=== PATIENT | female | born 1955 | race Caucasian/White ===

== ENCOUNTER → 2018-04-14 | Outpatient (CLI) | payer OTHER | LOC: CARD 12:23 | PROVIDERS: ATTEND Internal Medicine Cardiovascular Disease | DX: I10 Essential (primary) hypertension (principal); R60.0 Localized edema; M06.9 Rheumatoid arthritis, unspecified; E66.01 Morbid (severe) obesity due to excess calories | CPT/HCPCS: 93306 ==

== ENCOUNTER → 2018-04-23 | Day surgery (SDC) | payer OTHER ==
[~2018-04-23] VITALS: Ht 172.7 cm; Wt 126.1 kg
[2018-04-23] VITALS (7 sets, daily range): BP systolic 136–183; BP diastolic 82–116
[~2018-04-23] MED LIST: AMLO1CAP8 PO; ASPI-983 PO; ESTR0.9T PO; FOLI1TAB24 PO; LEVO75TA6 PO; LIDOCAINE 2% VISCOUS 15 ML UDC ONE; LIDOCAINE 2% VISCOUS 15 ML UDC PO ONE; LORA10TA7 PO; METH2.5T PO; METO-351 PO; MIDAZOLAM 5 MG/5 ML (VERSED) VIAL IV PRN; MIDAZOLAM 5 MG/5 ML (VERSED) VIAL ONE; NS IV 1000 ML 1,000 ML IV SCH; NS IV 1000 ML 1,000 ML ONE; OMEP20TA33 PO; VALA500T PO; fentaNYL INJECTION 100 MCG/2 ML AMP IV PRN; fentaNYL INJECTION 100 MCG/2 ML AMP ONE
--- NOTE | 2018-04-23 08:32 | Cardiac Procedure Note-CS/ASA ---
Pre-Procedure Note Pre-Op Procedure Note H&P Reviewed The H&P was reviewed, patient examined and no changes noted. Date H&P Reviewed: Apr 23, 2018 Time H&P Reviewed: 08:32 Conscious Sedation Pre-Proced Time 08:32 ASA Score 3 For ASA 3 and 4: Consider anesthesia and medical clearance. Also, for patients with a history of failed moderate sedation consider anesthesia. Airway Lungs Heart ASA score ASA 1: a normal healthy patient ASA 2: a patient with a mild systemic disease (mid diabetes, controlled hypertension, obesity x ASA 3: a patient with a severe systemic disease that limits activity (angina , COPD, prior Myocardial infarction) ASA 4: a patient with an incapacitating disease that is a constant threat to life (CHF, renal failure) ASA 5: a moribund patient not expected to survive 24 hrs. (ruptured aneurysm) ASA 6: a declared brain patient whose organs are being harvested. For emergent operations, add the letter E after the classification Mallampati Classification Grade 3 Sedation Plan Analgesia, Amnesia, Plan communicated to team members, Discussed options with patient/fam, Discussed risks with patient/fam The patient is an appropriate candidate to undergo the planned procedure, sedation, and anesthesia. The patient immediately re-assessed prior to indication. CARLOS SAINI MD Apr 23, 2018 08:32
--- NOTE | 2018-04-23 10:40 | Clinic Account Progress/Dx ---
Clinic Account Progress/Dx DIAGNOSIS: Date Seen by Provider: Apr 23, 2018 Time Seen by Provider: 10:40 Shortness of breath Aneurysmal intra-atrial septum Edema Hypertension CARLOS SAINI MD Apr 23, 2018 10:40
== END | disposition home or self-care (01) ==
LOC: CATH 08:15
PROVIDERS: ATTEND Internal Medicine Cardiovascular Disease
DX: Q21.1 Atrial septal defect (principal); R06.00 Dyspnea, unspecified; I10 Essential (primary) hypertension; I27.20 Pulmonary hypertension, unspecified; R60.0 Localized edema; E03.9 Hypothyroidism, unspecified; M06.9 Rheumatoid arthritis, unspecified; E66.01 Morbid (severe) obesity due to excess calories; Z68.41 Body mass index [BMI] 40.0-44.9, adult; Z87.891 Personal history of nicotine dependence
CPT/HCPCS: 87081; 93312; 93320; 93325

== ENCOUNTER → 2018-05-10 | Outpatient (CLI) | payer OTHER ==
[~2018-05-10] MED LIST changes: -LIDOCAINE 2% VISCOUS 15 ML UDC ONE; -LIDOCAINE 2% VISCOUS 15 ML UDC PO ONE; -MIDAZOLAM 5 MG/5 ML (VERSED) VIAL IV PRN; -MIDAZOLAM 5 MG/5 ML (VERSED) VIAL ONE; -NS IV 1000 ML 1,000 ML IV SCH; -NS IV 1000 ML 1,000 ML ONE; -fentaNYL INJECTION 100 MCG/2 ML AMP IV PRN; -fentaNYL INJECTION 100 MCG/2 ML AMP ONE
== END ==
LOC: RAD 07:42
PROVIDERS: ATTEND Nurse Practitioner Family
DX: Z12.31 Encounter for screening mammogram for malignant neoplasm of breast (principal)
CPT/HCPCS: 77067

== ENCOUNTER → 2019-05-23 | Outpatient (CLI) | payer MEDICARE ==
[~2019-05-23] MED LIST changes: +AMLO-77 PO; -AMLO1CAP8 PO
--- NOTE | 2019-05-23 10:20 | Diagnostic Imaging Report ---
INDICATION: Routine screening. Comparison is made with prior mammogram from 05/10/2018 and 01/05/2017. 2-D and 3-D bilateral screening mammography was performed with CAD. Both breasts are heterogeneously dense, limiting the sensitivity of mammography. There are scattered benign calcifications. No dominant mass or malignant-appearing microcalcifications are seen. Axillae are unremarkable. IMPRESSION: BI-RADS Category 2 No mammographic features suspicious for malignancy are identified. ACR BI-RADS Category 2: Benign findings. Result letter will be mailed to the patient. Note: At least 10% of breast cancer is not imaged by mammography. Dictated by: Dictated on workstation # [id number]
== END ==
LOC: RAD 07:44
PROVIDERS: ATTEND Nurse Practitioner Family
DX: Z12.31 Encounter for screening mammogram for malignant neoplasm of breast (principal)
CPT/HCPCS: 77067

== ENCOUNTER → 2019-05-24 | Outpatient (CLI) | payer MEDICARE ==
--- NOTE | 2019-05-24 11:02 | Diagnostic Imaging Report ---
EXAMINATION: Skull at 10:38 AM. INDICATION: Asymmetry. TECHNIQUE/COMPARISON: PA, Alpa, and both lateral views of the skull were obtained. There are no prior studies available for comparison. FINDINGS: There is no linear or depressed skull fracture. There does not appear to be any significant asymmetry of the skull. The sella is not enlarged and there are no pathological intracranial calcifications evident. IMPRESSION: 1. There is no evidence for an acute bony abnormality of the skull. There does not appear to be any significant bony asymmetry either. 2. If further evaluation is desired, then CT of the head would be recommended. Dictated by: Dictated on workstation # [id number]
== END ==
LOC: RAD 10:10
PROVIDERS: ATTEND Nurse Practitioner Family
DX: Q75.8 Other specified congenital malformations of skull and face bones (principal)
CPT/HCPCS: 70250

== ENCOUNTER → 2019-06-02 | Outpatient (CLI) | payer MEDICARE | LOC: CARD 10:33 | PROVIDERS: ATTEND Internal Medicine Cardiovascular Disease | DX: I10 Essential (primary) hypertension (principal); R60.9 Edema, unspecified; M06.9 Rheumatoid arthritis, unspecified; E66.01 Morbid (severe) obesity due to excess calories | CPT/HCPCS: 93306 ==

== ENCOUNTER 2020-04-25 15:16 | Inpatient (IN) | payer MEDICARE ==
[~2020-04-25] VITALS: Ht 170.2 cm; Wt 129.0 kg
[~2020-04-25 15:16] MED LIST changes: +ASPI-1238 PO; -ASPI-983 PO; -VALA500T PO; +VALA500T7 PO
[2020-04-25] MEDS ORDERED: ACETAMINOPHEN 325 MG TABLET PO ONE (15:30)
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
[2020-04-25] MEDS ORDERED: LACTATED RINGERS 1,000 ML IV ONE (15:45)
[2020-04-25] MEDS ORDERED: ETAN25VI SQ (15:54)
--- NOTE | 2020-04-25 16:19 | Diagnostic Imaging Report ---
INDICATION: Left shoulder pain. Injury. COMPARISON: Shoulder radiographs from the same day. FINDINGS: Two radiographic views of the left clavicle were obtained and show old nonacute nonhealed fractures of the distal clavicle. There is moderate inferior subluxation of the distal fracture fragment by approximately 2 cm. Note, however, is also made of a heavily comminuted acute fracture of the humeral head. This is only partially visualized on the uxzck-eg-qveo for this exam. The humeral head also appears mildly inferiorly subluxed in respect to the glenoid. A fat fluid level is noted, consistent with lipohemarthrosis. No unexpected radiopaque foreign bodies are seen. The included portions of the left hemithorax are clear. IMPRESSION: 1. Old nonacute nonhealed fracture of the distal left clavicle. 2. Heavily comminuted acute fracture of the left humeral head. Dictated by: Dictated on workstation # [id number]
--- NOTE | 2020-04-25 16:21 | Diagnostic Imaging Report ---
INDICATION: Fall. Shoulder pain. COMPARISON: Clavicle views from the same day. FINDINGS: Three radiographic views of the left shoulder were obtained and demonstrate an acute heavily comminuted fracture of the left humeral head. There is also moderate impaction and displacement of the fracture fragments. Additionally, the humerus does appear mildly abnormally inferiorly subluxed in respect to the glenoid. A fat fluid level is noted, consistent with hemarthrosis. No convincing scapular deformity is seen. There is, however, a nonacute nonhealed displaced fracture of the distal left clavicle. The included portions of the left hemithorax are clear. No unexpected radiopaque foreign bodies are seen. IMPRESSION: Acute heavily comminuted fracture of the left humeral head with moderate displacement of the fracture fragments and inferior subluxation of the humeral head in respect to the glenoid. Dictated by: Dictated on workstation # [id number]
[2020-04-25 16:34] LABS: BASOPHILS % (AUTO) 0 % (0-10); EOSINOPHILS # (AUTO) 0.3 10^3/uL (0.0-0.3); EOSINOPHILS % (AUTO) 3 % (0-10); HEMATOCRIT 39 % (35-52); HEMOGLOBIN 12.9 g/dL (11.5-16.0); LYMPHOCYTES # (AUTO) 1.8 10^3/uL (1.0-4.0); LYMPHOCYTES % (AUTO) 22 % (12-44); MEAN CORPUSCULAR HEMOGLOBIN 32 pg (25-34); MEAN CORPUSCULAR HGB CONC 33 g/dL (32-36); MEAN CORPUSCULAR VOLUME 97 fL (80-99); MEAN PLATELET VOLUME 12.3 fL (9.0-12.2); MONOCYTES # (AUTO) 0.6 10^3/uL (0.0-1.0); MONOCYTES % (AUTO) 8 % (0-12); NEUTROPHILS # (AUTO) 5.4 10^3/uL (1.8-7.8); NEUTROPHILS % (AUTO) 66 % (42-75); PLATELET COUNT 200 10^3/uL (130-400); WHITE BLOOD COUNT 8.1 10^3/uL (4.3-11.0)
[2020-04-25 16:38] LABS: ALBUMIN 3.8 GM/DL (3.2-4.5)
[2020-04-25 16:39] LABS: CHLORIDE 99 MMOL/L (98-107); POTASSIUM 3.5 MMOL/L (3.6-5.0); SODIUM 135 MMOL/L (135-145)
[2020-04-25 16:40] LABS: CALCIUM 9.1 MG/DL (8.5-10.1)
[2020-04-25 16:41] LABS: GLUCOSE 133 MG/DL (70-105)
[2020-04-25 16:42] LABS: CARBON DIOXIDE 25 MMOL/L (21-32)
[2020-04-25 16:43] LABS: BILIRUBIN,TOTAL 0.7 MG/DL (0.1-1.0)
[2020-04-25 16:44] LABS: ALKALINE PHOSPHATASE 71 U/L (40-136)
[2020-04-25 16:45] LABS: GFR ESTIMATED > 60
[2020-04-25 16:46] LABS: BUN/CREATININE RATIO 23
[2020-04-25 16:48] LABS: ALANINE AMINOTRANSFERASE 17 U/L (0-55)
--- NOTE | 2020-04-25 17:04 | Diagnostic Imaging Report ---
EXAM: Left humerus radiograph. EXAM DATE: 04/25/2020. COMPARISON: Left shoulder radiograph 04/25/2020. HISTORY: Fall and left shoulder with pain. TECHNIQUE: Two views of the left humerus. FINDINGS: Redemonstrated comminuted fracture and dislocation of the humeral head as seen on same-day left shoulder radiograph. No other acute fracture is seen within the mid or distal humerus, although evaluation is limited secondary to soft tissue attenuation. IMPRESSION: Comminuted fracture and dislocation of the left humeral head. Dictated by: Dictated on workstation # [id number]
[2020-04-25 18:04] LABS: BILIRUBIN,URINE NEGATIVE (NEGATIVE); CLARITY,URINE CLEAR; COLOR,URINE YELLOW; GLUCOSE, URINE (UA) NEGATIVE (NEGATIVE); KETONES,URINE NEGATIVE (NEGATIVE); LEUKOCYTE ESTERASE ,URINE NEGATIVE (NEGATIVE); NITRITE,URINE NEGATIVE (NEGATIVE); PROTEIN,URINE NEGATIVE (NEGATIVE)
[2020-04-25 18:10] LABS: AMORPHOUS SEDIMENT,UR FEW AMOR URATES /LPF; BACTERIA,URINE FEW /HPF; WBC,URINE 0-2 /HPF
[2020-04-25] MEDS ORDERED: ACETAMINOPHEN 500 MG TAB (TYLENOL) ONE (18:48)
--- NOTE | 2020-04-25 20:05 | NUR ---
MARLO ROJAS admitted to room 415-1, with an admitting diagnosis of FALL. R HUMERAL FRACTURE, PAIN CONTROL , on 04/25/20 from [place] via [facility], accompanied by STAFF.MARLO ROJAS introduced to surroundings, call light, bed controls, phone, TV, temperature control, lights, meal times, smoking policy, visitor policy, side rail policy, bathrooms and showers. Patient Rights given to patient in the handbook. MARLO ROJAS verbalizes understanding that [facility] is not responsible for the loss or damage to any personal effects or valuables that are kept in the patients posession during their hospitalization. MARLO ROJAS verbalizes understanding of Interdisciplinary Patient Education. Patient and/or family were informed about the Rapid Response Team and its purpose.
[2020-04-25 20:16] VITALS: BP 137/66
[2020-04-25] MEDS ORDERED: morphine INJ 10 MG/ML 1ML (SYR OR VIAL) IV PRN (20:30)
--- NOTE | 2020-04-25 21:10 | NUR ---
PT REQUEST HER HOME MEDS, DR SWEET NOTIFIED OF MEDS STATED BY PT, ORDERED TO GIVE ONE TIME DOSE AMLODIPINE AND RESTART LEVOTHYROXINE. SEE ORDER HX
[2020-04-25] MEDS ORDERED: amLODIPine 5 MG (NORVASC) TAB PO ONE (21:15)
[2020-04-25] MEDS: morphine INJ 4 MG/ML 1 ML (VIAL/SYRINGE) IV PRN (21:26)
[2020-04-25] MEDS: LACTATED RINGERS 1,000 ML IV SCH (22:31)
[2020-04-26 00:32] VITALS: BP 144/80
[2020-04-26] MEDS: morphine INJ 4 MG/ML 1 ML (VIAL/SYRINGE) IV PRN ×5 (01:07→20:39)
[2020-04-26 04:32] VITALS: BP 151/86
[2020-04-26] MEDS: LEVOTHYROXINE 75 MCG (LEVOTHROID) TABLET PO SCH (05:37)
[2020-04-26 05:51] LABS: BASOPHILS % (AUTO) 0 % (0-10); EOSINOPHILS # (AUTO) 0.1 10^3/uL (0.0-0.3); EOSINOPHILS % (AUTO) 1 % (0-10); HEMATOCRIT 36 % (35-52); HEMOGLOBIN 11.8 g/dL (11.5-16.0); LYMPHOCYTES # (AUTO) 1.2 10^3/uL (1.0-4.0); LYMPHOCYTES % (AUTO) 14 % (12-44); MEAN CORPUSCULAR HEMOGLOBIN 32 pg (25-34); MEAN CORPUSCULAR HGB CONC 33 g/dL (32-36); MEAN CORPUSCULAR VOLUME 97 fL (80-99); MEAN PLATELET VOLUME 12.4 fL (9.0-12.2); MONOCYTES # (AUTO) 1.1 10^3/uL (0.0-1.0); MONOCYTES % (AUTO) 12 % (0-12); NEUTROPHILS # (AUTO) 6.6 10^3/uL (1.8-7.8); NEUTROPHILS % (AUTO) 73 % (42-75); PLATELET COUNT 179 10^3/uL (130-400)
[2020-04-26 06:24] LABS: ALANINE AMINOTRANSFERASE 15 U/L (0-55); ALBUMIN 3.6 GM/DL (3.2-4.5); ALKALINE PHOSPHATASE 60 U/L (40-136); BILIRUBIN,TOTAL 0.9 MG/DL (0.1-1.0); BUN/CREATININE RATIO 23; CALCIUM 8.7 MG/DL (8.5-10.1); CARBON DIOXIDE 25 MMOL/L (21-32); CHLORIDE 102 MMOL/L (98-107); CREATININE SERUM 0.71 MG/DL (0.60-1.30); GFR ESTIMATED > 60; GLUCOSE 111 MG/DL (70-105); POTASSIUM 3.8 MMOL/L (3.6-5.0); SODIUM 137 MMOL/L (135-145); TOTAL PROTEIN 6.6 GM/DL (6.4-8.2)
[2020-04-26 07:20] VITALS: BP 172/82
--- NOTE | 2020-04-26 08:44 | NUR ---
CM/SS: Answered patient's call light and she requested to use the bathroom. She reported that she is in a great deal of pain. I let her primary care nurse know that she is in pain. Explored if she felt like she could get up to use the bathroom et she reports that she can. I asked the patient if she is assist of 1 person help and if she is using a walker. She reports "I need a lot of help and no one has offered me a walker." I asked if she had been out of bed prior to my helping her and she reports that she has. I encouraged her that if they had already worked with her the staff have determined she is safe to get up with assist x1 and no walker. I confirmed that she felt safe with getting up with me and no walker and she agrees. She is very specific on what she wants you to do to as the helper, where she wants you to stand, how she holds on to you d/t fear of hurting her shoulder. When she performed bed mobility she was able to do that independently after I set up the bed rail on the right side of the bed so she can pull herself up and use it to help turn herself to to the edge of the bed. She is able to perform sit to stand with minimal assist x1. Her gait is slow, steady, and she does not appear to need an assistive device for ambulation. She did need assist x1 to help pull down her underwear for toileting. She was able to perform pericare independently. Sit to stand from toilet independent using the grab bar. While with her we talked about what services she might be able to receive. She mentioned [facility] and asked if they would stay with her for a couple of days. Explained that [facility] service does not stay with clients but that they would come out and see her and provide doctor ordered services. She reported that she wants someone to stay with her. Offered her the paid lawn care professional list so that she can reach out to someone that might stay with her. She voiced that is what she is looking for and so I brought that to her. We also talked about private pay at a alf home and renting a lift chair. She does not want to rent a reclining lift chair but was also interested in considering a nursing facility for the option of 24/7 care. She thinks that she will be discharged today and voiced that she would really prefer that Dr. Hylton come and see her here at the hospital and perform any needed surgery before she is dismissed. Encouraged her that sometimes surgical procedures are performed on a outpt basis but that I would ask her nurse what her continued care plans are and offer support to Rufina no matter what her care plan is. She voiced appreciation for the paid lawn care professional list. I let her know that I will f/u later this morning. No further needs at this time.
[2020-04-26] MEDS: LACTATED RINGERS 1,000 ML IV SCH ×2 (08:47→11:57)
[2020-04-26] MEDS: ONDANSETRON 4 MG/2 ML (SDV) Z0FRAN IV PRN ×2 (10:14→14:44)
[2020-04-26] MEDS ORDERED: CALC117719 PO (10:32)
[2020-04-26] MEDS ORDERED: MULT-1136 PO (10:32)
[2020-04-26] MEDS ORDERED: KRIL1CAP18 PO (10:32)
[2020-04-26] MEDS ORDERED: VITA200C18 PO (10:32)
[2020-04-26] MEDS ORDERED: MTP25TSR PO (10:32)
[2020-04-26] MEDS ORDERED: POTA2TAB5 PO (10:32)
[2020-04-26] MEDS ORDERED: CHOL200014 PO (10:32)
[2020-04-26] MEDS ORDERED: TURM500C4 PO (10:32)
[2020-04-26] MEDS ORDERED: HYDR25TA4 PO (10:32)
[2020-04-26] MEDS ORDERED: AMLO1CAP5 PO (10:32)
[2020-04-26] MEDS ORDERED: ETAN50PE SQ (10:39)
[2020-04-26] MEDS ORDERED: PROGESTERONE TROCHE PO (10:49)
[2020-04-26] MEDS ORDERED: TESTOSTERONE PO (10:49)
[2020-04-26] MEDS ORDERED: PROGESTERONE PO (10:49)
[2020-04-26] MEDS ORDERED: BIEST PO (10:49)
--- NOTE | 2020-04-26 11:00 | NUR ---
CM/SS F/U: Offered additional choice forms for home health care entities and senior care facilities. Patient voiced that she is not interested in senior care facilities d/t COVID. She has been calling some paid caregivers to check on what might be available to her. She voiced that she would like to also have [facility] and voiced that she will need a hospital bed vs. lift chair. Patient choice is for [facility]. Notified [facility] of the potential referral. Patient requested that I call and find out equipment rental prices. This was explored and found that [employer] in [place], [place] is the only known medical equipment store to carry mechanical lift chairs and [facility] carries hospital beds. These prices were obtained and given to the patient. She indicates that she will get a hold of [facility] for a hospital bed and does not want the lift chair. She voiced appreciation for all of the resources provided to her and asked additional questions as to why Dr. Hylton was not consulted to come to the hospital to see her. Patient is currently in Observation status here and it was explained to her that often this type of injury is followed up on an outpatient basis. I did express that when her primary care doctor rounds she can visit with her about continued care plan options and that we are just covering our bases for whatever her doctor will want for her continued care plans. She voiced appreciation for this information and denies any further needs or requests at this time.
[2020-04-26 12:40] VITALS: BP 164/94
[2020-04-26] MEDS ORDERED: PATIENT MAY USE OWN MEDS, ALL MC SCH (13:15)
--- NOTE | 2020-04-26 13:49 | NUR ---
SPOKE WITH THE PT, WENT THRU THE EXT MED HISTORY AND CALLED [facility] TO COMPLETE THE MED REC PT WAS ABLE TO NAME ALL HER MEDICATIONS WELL WHEN/HOW SHE TAKES EACH PT GETS ENBREL 50 SURECLICK THRU THE [employer] MAILORDER [employer]. IT WAS LAST MAILED OUT ON 02-23-2020 FOR A 3 MONTH SUPPLY THE PT GETS THE FOLLOWING COMPOUNDED MEDICATIONS FROM [facility]: 02-29-2020 PROGESTERONE 200MG CARRINGTON 02-29-2020 BIEST 50/50 CARRINGTON 03-15-2020 TESTOSTERONE 1MG CARRINGTON OTC MEDS: PRILOSEC TUMS ULTRA POTASSIUM VIT D MTV TURMERIC KRILL OIL VIT E ASPIRIN 81MG
[2020-04-26 15:59] VITALS: BP 154/81
--- NOTE | 2020-04-26 16:48 | NUR ---
CM DISCHARGE PLANNING: Dr. Rabago the orthopedic surgeon is planning on surgically repairing Rufina's left arm on Thursday with the patient being a to follow. The office nurse will call me on Thursday to give a time that they will need to have the patient at their facility to check in for surgery. Dr. Figueroa is keeping the patient here for continue needed pain control et support with ADL's d/t inability to perform independently. The patient's sister Oxana will transport her to [place] on Thursday and her cell phone number is [phone]. Rufina will need to be NPO at Midnight on Thursday for the known surgery on Thursday. Assisted patient with setting up a hospital bed at home. [employer] will deliver the hospital bed to her home this evening and her sister Oxana will be there to receive. Rufina voiced relief that her surgery will be done sooner than later and voiced appreciation in the care she has received here.
--- NOTE | 2020-04-26 17:53 | History & Physical ---
History of Present Illness History of Present Illness Reason for visit/HPI This is a 65 year old female with a history of rheumatoid arthritis as well as a nonunion left clavicle fracture who slipped on a wet deck and fell on her right arm. She was brought to the emergency room and found to have an acute heavily comminuted fracture of the left humeral head with subluxation of the humeral head. She has numerous drug allergies making pain control difficult and lives alone so there was concern of her being able to care for herself at home with her left arm immobilized and possible side effects from pain medications so she will be admitted for pain control and ortho consult. Date of Admission Apr 25, 2020 at 19:00 Date Seen by a Provider: Apr 26, 2020 Time Seen by a Provider: 12:35 I consulted on this patient on 04/26/20 17:47 Attending Physician Milli Figueroa DO Admitting Physician Milli Figueroa DO Consult JUSTIN BENAVIDEZ Allergies and Home Medications Allergies Coded Allergies: chlorthalidone (Verified Allergy, Severe, 04/23/18) CHANGED ABILITY TO WALK Penicillins (Verified Allergy, Mild, RASH, 04/23/18) Sulfa (Sulfonamide Antibiotics) (Verified Allergy, Mild, RASH, 04/23/18) acetaminophen (Verified Allergy, Mild, NAUSEA, 04/23/18) "CRAZY" aspirin (Verified Allergy, Mild, RASH, 04/23/18) bacitracin (Verified Allergy, Mild, RASH, 04/23/18) cefaclor (Verified Allergy, Mild, RASH, 04/23/18) clindamycin (Verified Allergy, Mild, RASH, 04/23/18) codeine (Verified Allergy, Mild, 04/23/18) "CRAZY" ibuprofen (Verified Allergy, Mild, NAUSEA, 04/23/18) lanolin (Verified Allergy, Mild, RASH, 04/23/18) latex (Verified Allergy, Mild, RASH, 04/23/18) neomycin (Verified Allergy, Mild, RASH, 04/23/18) oxycodone (Verified Allergy, Mild, RASH, 04/23/18) polymyxin B (Verified Allergy, Mild, RASH, 04/23/18) tramadol (Verified Allergy, Mild, 04/23/18) "CRAZY" iodine (Verified Allergy, Unknown, 04/25/20) Home Medications Amlodipine Besylate/Benazepril 1 Each Capsule, 1 EACH PO DAILY, (Reported) Aspirin 81 Mg Tablet.dr, 81 MG PO DAILY, (Reported) Calcium Carbonate 470 Mg Tab.chew, 940 MG PO DAILY, (Reported) TAKES 2 (470MG) TABS Cholecalciferol (Vitamin D3) 50 Mcg Tablet, 50 MCG PO DAILY, (Reported) Etanercept 50 Mg/1 Ml Pen.injctr, 50 MG SQ MON, (Reported) Folic Acid 1 Mg Tablet, 1 MG PO DAILY, (Reported) Hydrochlorothiazide 25 Mg Tablet, 25 MG PO DAILY, (Reported) Krill/Om-3/Dha/Epa/Phospho/Ast 1 Each Capsule, 1 EACH PO DAILY, (Reported) Levothyroxine Sodium 75 Mcg Tablet, 75 MCG PO DAILY, (Reported) Methotrexate Sodium 2.5 Mg Tablet, 17.5 MG PO FRI, (Reported) TAKE 7 TABLETS ONCE A WEEK Metoprolol Succinate 25 Mg Tab.er.24h, 25 MG PO DAILY, (Reported) Multivitamin 1 Each Tablet, 1 EACH PO DAILY, (Reported) Omeprazole Magnesium 20 Mg Tablet.dr, 20 MG PO DAILY, (Reported) Potassium Gluconate 90 Mg Tablet, 90 MG PO DAILY, (Reported) Turmeric/Turmeric Root Extract 1 Each Capsule, 1 EACH PO DAILY, (Reported) Valacyclovir HCl 500 Mg Tablet, 500 MG PO DAILY, (Reported) Vitamin E Acetate 200 Unit Capsule, 200 UNIT PO DAILY, (Reported) [Biest(50/50)] 50,/50 CARRINGTON, 0.5 EACH PO HS, (Reported) [Progesterone Carrington] 200 CARRINGTON, 0.5 EA PO HS, (Reported) [Testosterone ] 1 TROC, 0.5 EA PO Q48H, (Reported) Patient Home Medication List Home Medication List Reviewed: Yes Past Qosgfyt-Qnsmjl-Ohmliv Hx Past Med/Social Hx: Reviewed Nursing Past Med/Soc Hx Patient Social History Alcohol Use: Denies Use Recreational Drug Use: No Smoking Status: Never a Smoker Recent Foreign Travel: No Contact w/other who traveled: No Recent Hopitalizations: No Recent Infectious Disease Expo: No Past Medical History Surgeries: Abdominal, Appendectomy, Hysterectomy, Orthopedic Currently Using CPAP: No Currently Using BIPAP: No Cardiac: Hypertension Sexually Transmitted Disease: Yes (GENITAL HERPES) Gastrointestinal: Hiatal Hernia Musculoskeletal: Rheumatoid Arthritis Endocrine: Hypothyroidsim Did You Recieve Any Treatments: Yes What Type of Treatment Did You: Surgical Intervention History of Blood Disorders: Yes ("CLOTTING FACTOR" ISSUE) Adverse Reaction to Blood Hernandez: No Review of Systems Constitutional: No no symptoms reported, No see HPI, No chills, No diaphoresis, No dizziness, No fever, No malaise, No weakness, No weight gain, No weight loss, No other EENTM: No see HPI, No no symptoms reported, No ear discharge, No hearing loss, No ear pain, No blurred vision, No double vision, No eye pain, No tearing, No vision loss, No dental problems, No hoarseness, No mouth pain, No mouth swelling, No epistaxis, No nose congestion, No nose pain, No throat pain, No throat swelling, No other Respiratory: No no symptoms reported, No see HPI, No cough, No dyspnea on exertion, No hemoptysis, No orthopnea, No phlegm, No short of breath, No stridor, No wheezing, No other Cardiovascular: No no symptoms reported, No see HPI, No chest pain, No edema, No Hx of Intervention, No palpitations, No syncope, No vascular heart diseas, No other Gastrointestinal: nausea Genitourinary: No no symptoms reported, No see HPI, No decreased output, No discharge, No dysuria, No frequency, No hematuria, No hesitancy, No incontinence, No nocturia, No pain, No other Musculoskeletal: joint pain, joint swelling Skin: No no symptoms reported, No see HPI, No change in color, No change in hair/nails, No dryness, No hx of skin cancer, No lesions, No lumps, No pruritus, No rash, No other Psychiatric/Neurological: Denies No Symptoms Reported, Denies See HPI, Denies Anxiety, Denies Depressed, Denies Emotional Problems, Denies Headache, Denies Numbness, Denies Paresthesia, Denies Pre-Existing Deficit, Denies Seizure, Denies Tingling, Denies Tremors, Denies Weakness, Denies Other Physical Exam Vital Signs Vital Signs - First Documented 04/25/20 04/25/20 15:30 19:55 Temp 36.8 Pulse 71 Resp 20 B/P (MAP) 146/76 (99) Pulse Ox 96 O2 Delivery Room Air Capillary Refill : Less Than 3 SecondsLess Than 3 Seconds Height, Weight, BMI Height: 5'8.00" Weight: 278lbs. 0.0oz. 126.639193cf; 44.53 BMI Method: General Appearance: No Apparent Distress HEENT: Normal ENT Inspection Neck: Supple Respiratory: Lungs Clear Cardiovascular: Regular Rate, Rhythm Gastrointestinal: Normal Bowel Sounds, Non Tender, Soft Rectal: Deferred Back: No CVA Tenderness Extremity: Non Tender, No Calf Tenderness, No Pedal Edema, Other (left arm in sling) Neurologic/Psychiatric: Alert, Oriented x3 Skin: Warm/Dry Comments Laboratory Tests 04/25/20 17:55: Urine Color YELLOW, Urine Clarity CLEAR, Urine pH 6.0, Urine Specific Branscomb 1.025H, Urine Protein NEGATIVE, Urine Glucose (UA) NEGATIVE, Urine Ketones NEGATIVE, Urine Nitrite NEGATIVE, Urine Bilirubin NEGATIVE, Urine Urobilinogen 0.2, Urine Leukocyte Esterase NEGATIVE, Urine RBC (Auto) NEGATIVE, Urine RBC NONE, Urine WBC 0-2, Urine Squamous Epithelial Cells 5-10, Urine Crystals PRE SENTH, Urine Amorphous Sediment FEW SARAH URATESH, Urine Bacteria FEWH, Urine Casts NONE, Urine Mucus MODERATEH, Urine Culture Indicated NO 04/26/20 05:10: White Blood Count 9.0, Red Blood Count 3.68L, Hemoglobin 11.8, Hematocrit 36, Mean Corpuscular Volume 97, Mean Corpuscular Hemoglobin 32, Mean Corpuscular Hemoglobin Concent 33, Red Cell Distribution Width 13.8, Platelet Count 179, Mean Platelet Volume 12.4H, Immature Granulocyte % (Auto) 0, Neutrophils (%) (Auto) 73, Lymphocytes (%) (Auto) 14, Monocytes (%) (Auto) 12, Eosinophils (%) (Auto) 1, Basophils (%) (Auto) 0, Neutrophils # (Auto) 6.6, Lymphocytes # (Auto) 1.2, Monocytes # (Auto) 1.1H, Eosinophils # (Auto) 0.1, Basophils # (Auto) 0.0, Immature Granulocyte # (Auto) 0.0, Sodium Level 137, Potassium Level 3.8, Chloride Level 102, Carbon Dioxide Level 25, Anion Gap 10, Blood Urea Nitrogen 16, Creatinine 0.71, Estimat Glomerular Filtration Rate > 60, BUN/Creatinine Ratio 23, Glucose Level 111H, Calcium Level 8.7, Corrected Calcium 9.0, Total Bilirubin 0.9, Aspartate Amino Transf (AST/SGOT) 18, Alanine Aminotransferase (ALT/SGPT) 15, Alkaline Phosphatase 60, Total Protein 6.6, Albumin 3.6 Assessment/Plan Assessment and Plan 1. Acute heavily comminuted fracture of the left humeral head with subluxation--immobilized with pain control with IV morphine due to numerous drug allergies, Dr. Rabago at [facility] has been consulted and patient is scheduled for surgery on Thursday, April 30, 2020, patient is a high fall risk for returning to home due to immobilized left arm, lives alone, numerous drug allergies limit pain control and oral morphine could result in altered sensorium causing increased fall risk 2. Hypertension--home meds restarted 3. Rheumatoid arthritis--on methotrexate and enbrel, follows routinely with rheumatology Admission Diagnosis Admission Status: Observation Clinical Quality Measures DVT/VTE Risk/Contraindication: Risk Factor Score Per Nursin RFS Level Per Nursing on Admit: 4+=Very High MILLI FIGUEROA DO Apr 26, 2020 17:52
[2020-04-26] MEDS: ENOXAPARIN 40 MG/0.4 ML (LOVENOX) SYR SC SCH (18:06)
[2020-04-26 20:25] VITALS: BP 167/91
[2020-04-26] MEDS: PROGESTERONE 200 MG PO SCH (20:27)
[2020-04-26] MEDS: SENNA W/DOCUSATE (SENOKOT S) TABLET PO SCH (20:28)
[2020-04-26] MEDS: BIEST PO SCH (20:28)
[2020-04-27] VITALS: BP 168/93
[2020-04-27] MEDS: morphine INJ 4 MG/ML 1 ML (VIAL/SYRINGE) IV PRN ×5 (00:44→20:54)
[2020-04-27] MEDS: LACTATED RINGERS 1,000 ML IV SCH ×2 (01:50→21:54)
[2020-04-27] MEDS: LEVOTHYROXINE 75 MCG (LEVOTHROID) TABLET PO SCH ×2 (05:16→05:17)
[2020-04-27] MEDS: ENOXAPARIN 40 MG/0.4 ML (LOVENOX) SYR SC SCH ×2 (05:16→18:49)
[2020-04-27] MEDS: MULTIVIT W/MINERALS TAB (THERAGRAN M) PO SCH (07:37)
[2020-04-27 08:00] VITALS: BP 187/97
[2020-04-27] MEDS: FOLIC ACID 1 MG TAB PO SCH (08:35)
[2020-04-27] MEDS: CALCIUM CARBONATE 500 MG (TUMS) TAB.CHEW PO SCH (08:44)
[2020-04-27] MEDS: HYDROCHLOROTHIAZIDE 25 MG (HCTZ) TAB PO SCH (08:44)
[2020-04-27] MEDS: lisINopril 20 MG (PRINIVIL) TABLET PO SCH (08:44)
[2020-04-27] MEDS: SENNA W/DOCUSATE (SENOKOT S) TABLET PO SCH ×2 (08:44→21:06)
[2020-04-27] MEDS: VITAMIN D3 25 MCG (1,000 UNITS) TABLET PO SCH (08:44)
[2020-04-27] MEDS: amLODIPine 5 MG (NORVASC) TAB PO SCH (08:45)
[2020-04-27] MEDS: VALACYCLOVIR 500 MG TAB (VALTREX) PO SCH (08:45)
[2020-04-27] MEDS: PANTOPRAZOLE 20 MG TABLET (PROTONIX) PO SCH (08:46)
[2020-04-27] MEDS: TESTOSTERONE 1 MG PO SCH (08:48)
--- NOTE | 2020-04-27 09:20 | NUR ---
MS 2MG IV FOR PAIN LT ARM.
--- NOTE | 2020-04-27 09:30 | Progress Note ---
Subjective HPI/CC On Admission Date Seen by Provider: Apr 27, 2020 Time Seen by Provider: 09:25 Ms. Preciado is a 65 year old with history of non-union left clavicle fracture who presents to the ED after falling found to have Acute heavily comminuted fracture of the left humeral head with moderate displacement of the fracture fragments and inferior subluxation of the humeral head in respect to the glenoid. She has multiple medication allergies and can only tolerate morphine for pain. She was unable to go home due to care needs and is awaiting surgery in [place] on Thursday. Subjective/Events-last exam Today, she is feeling like pain is well-controlled on morphine. Having some nausea with higher doses of medications. Objective Exam Vital Signs Vital Signs Date Time Temp Pulse Resp B/P (MAP) Pulse Ox O2 Delivery O2 Flow Rate FiO2 04/27/20 08:00 36.5 87 18 187/97 (127) Room Air 04/27/20 08:00 96 Capillary Refill : Less Than 3 SecondsLess Than 3 Seconds General Appearance: No Apparent Distress, WD/WN Respiratory: Chest Non Tender, Lungs Clear, Normal Breath Sounds Cardiovascular: Regular Rate, Rhythm, No Edema Extremity: No Pedal Edema (ice on left shoulder in sling) Results/Procedures Lab Patient resulted labs reviewed. Assessment/Plan Assessment and Plan Assess & Plan/Chief Complaint 1. Acute heavily comminuted fracture of the left humeral head with subluxation--immobilized with pain control with IV morphine due to numerous drug allergies, Dr. Rabago at [place] has been consulted and patient is scheduled for surgery on Thursday, April 30, 2020, patient is a high fall risk for returning to home due to immobilized left arm, lives alone, numerous drug allergies limit alejandra n control and oral morphine could result in altered sensorium causing increased fall risk 2. Hypertension--home meds restarted. Improving and likely elevated due to pain. Will monitor. 3. Rheumatoid arthritis--on methotrexate and enbrel, follows routinely with rheumatology. Will hold before surgery. Diagnosis/Problems Diagnosis/Problems (1) Shoulder fracture, left Status: Acute Qualifiers: Qualified Codes: S42.92XA - Fracture of left shoulder girdle, part unspecified, initial encounter for closed fracture (2) pain control Clinical Quality Measures DVT/VTE Risk/Contraindication: Risk Factor Score Per Nursin RFS Level Per Nursing on Admit: 4+=Very High MONSERRAT GARZA MD Apr 27, 2020 09:30
[2020-04-27 16:27] VITALS: BP 140/76
[2020-04-27] MEDS: PROGESTERONE 200 MG PO SCH (20:53)
[2020-04-27] MEDS: BIEST PO SCH (20:53)
[2020-04-28] VITALS: BP 155/79
[2020-04-28] MEDS: morphine INJ 4 MG/ML 1 ML (VIAL/SYRINGE) IV PRN ×2 (00:42→06:50)
[2020-04-28] MEDS: LEVOTHYROXINE 75 MCG (LEVOTHROID) TABLET PO SCH ×2 (06:25)
[2020-04-28] MEDS: ENOXAPARIN 40 MG/0.4 ML (LOVENOX) SYR SC SCH ×2 (06:25→17:50)
[2020-04-28] MEDS: MULTIVIT W/MINERALS TAB (THERAGRAN M) PO SCH (06:25)
[2020-04-28 07:13] LABS: HEMOGLOBIN 11.3 g/dL (11.5-16.0)
[2020-04-28 07:15] LABS: BASOPHILS % (AUTO) 0 % (0-10); EOSINOPHILS # (AUTO) 0.4 10^3/uL (0.0-0.3); EOSINOPHILS % (AUTO) 5 % (0-10); HEMATOCRIT 34 % (35-52); LYMPHOCYTES # (AUTO) 2.5 10^3/uL (1.0-4.0); LYMPHOCYTES % (AUTO) 32 % (12-44); MEAN CORPUSCULAR HEMOGLOBIN 33 pg (25-34); MEAN CORPUSCULAR HGB CONC 33 g/dL (32-36); MEAN CORPUSCULAR VOLUME 99 fL (80-99); MEAN PLATELET VOLUME 12.6 fL (9.0-12.2); MONOCYTES # (AUTO) 0.9 10^3/uL (0.0-1.0); MONOCYTES % (AUTO) 11 % (0-12); NEUTROPHILS % (AUTO) 52 % (42-75); PLATELET COUNT 144 10^3/uL (130-400); WHITE BLOOD COUNT 7.8 10^3/uL (4.3-11.0)
[2020-04-28 07:29] LABS: CHLORIDE 102 MMOL/L (98-107); POTASSIUM 3.9 MMOL/L (3.6-5.0); SODIUM 137 MMOL/L (135-145)
[2020-04-28 07:30] LABS: CALCIUM 8.4 MG/DL (8.5-10.1)
[2020-04-28 07:31] LABS: GLUCOSE 101 MG/DL (70-105)
[2020-04-28 07:32] LABS: CARBON DIOXIDE 25 MMOL/L (21-32)
[2020-04-28 07:35] LABS: CREATININE SERUM 0.69 MG/DL (0.60-1.30); GFR ESTIMATED > 60
[2020-04-28 07:36] LABS: BUN/CREATININE RATIO 12
[2020-04-28 08:00] VITALS: BP 126/69
[2020-04-28 08:21] LABS: BASOPHILS % (MANUAL) 1 %; EOSINOPHILS % (MANUAL) 3 %; LYMPHOCYTES % (MANUAL) 23 %; MONOCYTES % (MANUAL) 9 %; NEUTROPHILS % (MANUAL) 60 %; RBC MORPH NORMAL; REACTIVE LYMPHOCYTES 4 %
[2020-04-28] MEDS: PANTOPRAZOLE 20 MG TABLET (PROTONIX) PO SCH (09:16)
[2020-04-28] MEDS: VITAMIN D3 25 MCG (1,000 UNITS) TABLET PO SCH (09:16)
[2020-04-28] MEDS: lisINopril 20 MG (PRINIVIL) TABLET PO SCH (09:16)
[2020-04-28] MEDS: HYDROCHLOROTHIAZIDE 25 MG (HCTZ) TAB PO SCH (09:16)
[2020-04-28] MEDS: amLODIPine 5 MG (NORVASC) TAB PO SCH (09:17)
[2020-04-28] MEDS: SENNA W/DOCUSATE (SENOKOT S) TABLET PO SCH ×2 (09:17→20:06)
[2020-04-28] MEDS: CALCIUM CARBONATE 500 MG (TUMS) TAB.CHEW PO SCH (09:17)
[2020-04-28] MEDS: VALACYCLOVIR 500 MG TAB (VALTREX) PO SCH (09:17)
[2020-04-28] MEDS: FOLIC ACID 1 MG TAB PO SCH (09:17)
--- NOTE | 2020-04-28 09:57 | Progress Note ---
Subjective HPI/CC On Admission Date Seen by Provider: Apr 28, 2020 Time Seen by Provider: 09:54 Ms. Preciado is a 65 year old with history of non-union left clavicle fracture who presents to the ED after falling found to have Acute heavily comminuted fracture of the left humeral head with moderate displacement of the fracture fragments and inferior subluxation of the humeral head in respect to the glenoid. She has multiple medication allergies and can only tolerate morphine for pain. She was unable to go home due to care needs. Subjective/Events-last exam Overnight pain was controlled on 2 mg morphine IV. The pain is much better if she doesn't move her shoulder. She is trying to stretch out her doses. Objective Exam Vital Signs Vital Signs Date Time Temp Pulse Resp B/P (MAP) Pulse Ox O2 Delivery O2 Flow Rate FiO2 04/28/20 08:00 96 Room Air 04/28/20 08:00 36.6 92 20 126/69 (88) Capillary Refill : Less Than 3 SecondsLess Than 3 Seconds General Appearance: No Apparent Distress, WD/WN Respiratory: Chest Non Tender, Lungs Clear Cardiovascular: Regular Rate, Rhythm, No Edema Extremity: Normal Capillary Refill, No Pedal Edema Neurologic/Psychiatric: Alert, Oriented x3, Normal Mood/Affect Results/Procedures Lab Laboratory Tests 04/28/20 06:52 Patient resulted labs reviewed. Assessment/Plan Assessment and Plan Assess & Plan/Chief Complaint 1. Acute heavily comminuted fracture of the left humeral head with subluxation--immobilized with pain control with IV morphine due to numerous drug allergies, Dr. Rabago at [place] has been consulted and patient is scheduled for surgery consult on Thursday. We will try oral morphine today with IV morphine as back up to see how she will tolerate it at home. Will start with 7.5 mg IR every 4 hours as needed. 2. Hypertension--home meds restarted. Improving and likely elevated due to pain. Will monitor. 3. Rheumatoid arthritis--on methotrexate and enbrel, follows routinely with rheumatology. Will hold before surgery. Diagnosis/Problems Diagnosis/Problems (1) Shoulder fracture, left Status: Acute Qualifiers: Qualified Codes: S42.92XA - Fracture of left shoulder girdle, part unspecified, initial encounter for closed fracture (2) pain control Status: Acute Clinical Quality Measures DVT/VTE Risk/Contraindication: Risk Factor Score Per Nursin RFS Level Per Nursing on Admit: 4+=Very High MONSERRAT GARZA MD Apr 28, 2020 09:56
[2020-04-28 15:24] VITALS: BP 181/80
[2020-04-28] MEDS: morphine IMMEDIATE RELEASE 15 MG TABLET PO PRN (17:49)
[2020-04-28] MEDS: LACTATED RINGERS 1,000 ML IV SCH (18:17)
[2020-04-28] MEDS: PROGESTERONE 200 MG PO SCH (20:06)
[2020-04-28] MEDS: BIEST PO SCH (20:06)
[2020-04-28 23:34] VITALS: BP 137/67
[2020-04-29] MEDS: morphine IMMEDIATE RELEASE 15 MG TABLET PO PRN ×2 (01:23→08:46)
[2020-04-29] MEDS: MULTIVIT W/MINERALS TAB (THERAGRAN M) PO SCH (06:10)
[2020-04-29] MEDS: LEVOTHYROXINE 75 MCG (LEVOTHROID) TABLET PO SCH (06:10)
[2020-04-29] MEDS: ENOXAPARIN 40 MG/0.4 ML (LOVENOX) SYR SC SCH ×2 (06:10→17:18)
[2020-04-29 08:00] VITALS: BP 169/96
--- NOTE | 2020-04-29 08:45 | NUR ---
MS IR 7.5MG FOR PAIN.
[2020-04-29] MEDS: FOLIC ACID 1 MG TAB PO SCH (09:32)
[2020-04-29] MEDS: amLODIPine 5 MG (NORVASC) TAB PO SCH (09:32)
[2020-04-29] MEDS: VALACYCLOVIR 500 MG TAB (VALTREX) PO SCH (09:32)
[2020-04-29] MEDS: VITAMIN D3 25 MCG (1,000 UNITS) TABLET PO SCH (09:32)
[2020-04-29] MEDS: PANTOPRAZOLE 20 MG TABLET (PROTONIX) PO SCH (09:32)
[2020-04-29] MEDS: lisINopril 20 MG (PRINIVIL) TABLET PO SCH (09:32)
[2020-04-29] MEDS: HYDROCHLOROTHIAZIDE 25 MG (HCTZ) TAB PO SCH (09:33)
[2020-04-29] MEDS: CALCIUM CARBONATE 500 MG (TUMS) TAB.CHEW PO SCH (09:33)
[2020-04-29] MEDS: SENNA W/DOCUSATE (SENOKOT S) TABLET PO SCH ×2 (09:33→19:49)
[2020-04-29] MEDS: TESTOSTERONE 1 MG PO SCH (09:35)
--- NOTE | 2020-04-29 09:45 | NUR ---
IVF DC'D AND CHANGED TO HL.
--- NOTE | 2020-04-29 09:49 | Progress Note ---
Subjective HPI/CC On Admission Date Seen by Provider: Apr 29, 2020 Time Seen by Provider: 09:47 Ms. Preciado is a 65 year old with history of non-union left clavicle fracture who presents to the ED after falling found to have Acute heavily comminuted fracture of the left humeral head with moderate displacement of the fracture fragments and inferior subluxation of the humeral head in respect to the glenoid. She has multiple medication allergies and can only tolerate morphine for pain. She was unable to go home due to care needs. Subjective/Events-last exam Did well on oral morphine. Went from 6 last night to this morning, but pain was very severe. Up and moving around. Objective Exam Vital Signs Vital Signs Date Time Temp Pulse Resp B/P (MAP) Pulse Ox O2 Delivery O2 Flow Rate FiO2 04/29/20 08:00 35.8 108 20 169/96 (120) 96 Room Air Capillary Refill : Less Than 3 SecondsLess Than 3 Seconds General Appearance: No Apparent Distress, WD/WN Neck: Full Range of Motion Extremity: No Pedal Edema (ice pack on left shoulder; left arm in sling) Results/Procedures Lab Patient resulted labs reviewed. Assessment/Plan Assessment and Plan Assess & Plan/Chief Complaint 1. Acute heavily comminuted fracture of the left humeral head with subluxation--immobilized with pain control with IV morphine due to numerous drug allergies, Dr. Rabago at [place] has been consulted and patient is scheduled for surgery consult on Thursday. We will try oral morphine today with IV morphine as back up to see how she will tolerate it at home. Will start with 7.5 mg IR every 4 hours as needed. 04/29- Will schedule morphine every 8h to keep on top of pain. may need to increase frequency. Home tomorrow with fu with surgeon Thursday. Saline lock IV. No IV use of morphine needed. 2. Hypertension--home meds restarted. Improving and likely elevated due to pain. Will monitor. 3. Rheumatoid arthritis--on methotrexate and enbrel, follows routinely with rheumatology. Will hold before surgery. Diagnosis/Problems Diagnosis/Problems (1) Shoulder fracture, left Status: Acute Qualifiers: Qualified Codes: S42.92XA - Fracture of left shoulder girdle, part unspecified, initial encounter for closed fracture (2) pain control Status: Acute Clinical Quality Measures DVT/VTE Risk/Contraindication: Risk Factor Score Per Nursin RFS Level Per Nursing on Admit: 4+=Very High MONSERRAT GARZA MD Apr 29, 2020 09:49
[2020-04-29 16:37] VITALS: BP 157/85
[2020-04-29] MEDS: morphine IMMEDIATE RELEASE 15 MG TABLET PO SCH (17:19)
[2020-04-29] MEDS: PROGESTERONE 200 MG PO SCH (19:50)
[2020-04-29] MEDS: BIEST PO SCH (19:50)
[2020-04-30] VITALS: BP 148/87
[2020-04-30] MEDS: morphine IMMEDIATE RELEASE 15 MG TABLET PO SCH ×3 (00:52→17:06)
[2020-04-30] MEDS: MULTIVIT W/MINERALS TAB (THERAGRAN M) PO SCH (06:16)
[2020-04-30] MEDS: ENOXAPARIN 40 MG/0.4 ML (LOVENOX) SYR SC SCH (06:16)
[2020-04-30] MEDS: LEVOTHYROXINE 75 MCG (LEVOTHROID) TABLET PO SCH (06:16)
[2020-04-30 08:00] VITALS: BP 163/88
[2020-04-30] MEDS ORDERED: MORP15TA PO (08:51)
[2020-04-30] MEDS: VALACYCLOVIR 500 MG TAB (VALTREX) PO SCH (09:21)
[2020-04-30] MEDS: amLODIPine 5 MG (NORVASC) TAB PO SCH (09:21)
[2020-04-30] MEDS: FOLIC ACID 1 MG TAB PO SCH (09:21)
[2020-04-30] MEDS: SENNA W/DOCUSATE (SENOKOT S) TABLET PO SCH (09:21)
[2020-04-30] MEDS: VITAMIN D3 25 MCG (1,000 UNITS) TABLET PO SCH (09:22)
[2020-04-30] MEDS: lisINopril 20 MG (PRINIVIL) TABLET PO SCH (09:22)
[2020-04-30] MEDS: PANTOPRAZOLE 20 MG TABLET (PROTONIX) PO SCH (09:22)
[2020-04-30] MEDS: HYDROCHLOROTHIAZIDE 25 MG (HCTZ) TAB PO SCH (09:23)
[2020-04-30] MEDS: CALCIUM CARBONATE 500 MG (TUMS) TAB.CHEW PO SCH (09:23)
--- NOTE | 2020-04-30 11:43 | D/C HH Face to Face Order ---
D/C Face to Face Orders Reconcile Patient Problems Problems Reviewed?: Yes Instructions for Patient [facility], Patient Instructions/FollowUp: Fwup with ortho--Dr. Rabago tomorrow and with me in 4-6weeks Physician to follow Patient: [place] Discharge Diet for Home: Low Sodium Diet Patient Data-Allergies,Ht & Wt Patient Allergies: Coded Allergies: chlorthalidone (Verified Allergy, Severe, 04/23/18) CHANGED ABILITY TO WALK Penicillins (Verified Allergy, Mild, RASH, 04/23/18) Sulfa (Sulfonamide Antibiotics) (Verified Allergy, Mild, RASH, 04/23/18) acetaminophen (Verified Allergy, Mild, NAUSEA, 04/23/18) "CRAZY" aspirin (Verified Allergy, Mild, RASH, 04/23/18) bacitracin (Verified Allergy, Mild, RASH, 04/23/18) cefaclor (Verified Allergy, Mild, RASH, 04/23/18) clindamycin (Verified Allergy, Mild, RASH, 04/23/18) codeine (Verified Allergy, Mild, 04/23/18) "CRAZY" ibuprofen (Verified Allergy, Mild, NAUSEA, 04/23/18) lanolin (Verified Allergy, Mild, RASH, 04/23/18) latex (Verified Allergy, Mild, RASH, 04/23/18) neomycin (Verified Allergy, Mild, RASH, 04/23/18) oxycodone (Verified Allergy, Mild, RASH, 04/23/18) polymyxin B (Verified Allergy, Mild, RASH, 04/23/18) tramadol (Verified Allergy, Mild, 04/23/18) "CRAZY" iodine (Verified Allergy, Unknown, 04/25/20) Height (Feet): 5 Height (Inches): 8.00 Weight (Pounds): 278 Weight (Ounces): 0.0 Home Health Need/Face to Face Date of Face to Face: Apr 30, 2020 Clinical Findings: Muscle weakness I have seen Pt [id number]: Yes Discharged To: Home Diagnosis/Conditions: Left humeral fracture with dislocation Patient is Homebound due to: Karan fall risk due to instabilty, Non-weight bearing Homebound Status Due to the above stated illness, injury or surgical procedure (medical condition or diagnosis) and associated clinical findings, the patient is homebound because of his/her inability to leave home except with aid of a supportive device and/or person AND leaving the home requires a considerable and taxing effort or is medically contraindicated. Pt req the following assistanc: Aid of another person Home Health Nursing Orders Home Health Services Order: Nursing Services, Candle Wrapper-Evaluate & Treat, Physical Therapy-Evaluate & Treat Home Health Infusion Therapy Line Start Date: Apr 27, 2020 Certify Stmt I certify that this patient is under my care and that I, a nurse practitioner or a physician; a preschool assistant working with me, had a face to face encounter that - meets the physician face to face encounter requirements with this patient as dated. MILLI SWEET DO Apr 30, 2020 11:43
--- NOTE | 2020-04-30 13:39 | NUR ---
DISCHARGE PLANNING: Patient is discharging to home today with [facility] for Nursing, Physical Therapy, and Occupational Therapy. She has a hospital bed at her home that she is renting through [facility] [place] [place]. She will f/u with Dr. Rabago tomorrow in his office to schedule her outpt surgery. Dr. Rabago's office staff member Leslye [phone] indicated that likely her surgery will be on vs. Thursday of this week. Leslye requested that I fax clinical information to her at [phone] so that they will not have to repeat all testing on her there. She also requested for the patient to bring a list of all of her home medications. Discussed the above information with the patient and also called and spoke to her sister Neelam this a.m. No further needs noted at this time.
[2020-04-30 16:01] VITALS: BP 136/76
[2020-04-30 17:30] VITALS: BP 136/76
--- NOTE | 2020-04-30 17:30 | NUR ---
MARLO ROJAS admitted to room 415-1, with an admitting diagnosis of L HUMERUS FX, on 04/25/20 from [place] via , accompanied by STAFF.MARLO ROJAS introduced to surroundings, call light, bed controls, phone, TV, temperature control, lights, meal times, smoking policy, visitor policy, side rail policy, bathrooms and showers. Patient Rights given to patient in the handbook. MARLO ROJAS verbalizes understanding that [facility] is not responsible for the loss or damage to any personal effects or valuables that are kept in the patients posession during their hospitalization. MARLO ROJAS verbalizes understanding of Interdisciplinary Patient Education. Patient and/or family were informed about the Rapid Response Team and its purpose.
--- NOTE | 2020-05-15 17:42 | Discharge Summary ---
Diagnosis/Chief Complaint Date of Admission Apr 30, 2020 at 15:40 Date of Discharge Apr 30, 2020 at 17:30 Discharge Date: Apr 30, 2020 Discharge Diagnosis 1. Acute heavily comminuted fracture of the left humeral head with subluxation--immobilized with pain control with morphine due to numerous drug allergies, Scheduled to see Dr. Rabago at [place] May 01, 2020 with possible surgry on May 03 2. Hypertension--stable 3. Rheumatoid arthritis-- methotrexate and enbrel on hold for upcoming surgery, follows routinely with rheumatology Reason Hospital Visit This is a 65 year old female with a history of rheumatoid arthritis as well as a nonunion left clavicle fracture who slipped on a wet deck and fell on her right arm. She was brought to the emergency room and found to have an acute heavily comminuted fracture of the left humeral head with subluxation of the humeral head. She has numerous drug allergies making pain control difficult and lives alone so there was concern of her being able to care for herself at home with her left arm immobilized and possible side effects from pain medications so she will be admitted for pain control and ortho consult. Discharge Summary Hospital Course Was the Problem List Reviewed?: Yes Hospital Course This is a 65 year old female with a history of rheumatoid arthritis as well as a nonunion left clavicle fracture who slipped on a wet deck and fell on her left arm. She was brought to the emergency room and found to have an acute heavily comminuted fracture of the left humeral head with subluxation of the humeral head. She has numerous drug allergies making pain control difficult and lives alone so there was concern of her being able to care for herself at home with her left arm immobilized and possible side effects from pain medications so she will be admitted for pain control and ortho consult. She was admitted to the medical floor. She required routine IV morphine for pain control. She had lovenox for DVT prophylaxis. Her home blood pressure medications were restarted. Orthopedics here did not assess the patient due to the severity of the fracture and dislocation and recommended she see Dr. Rabago at [place]. The patient's films were clouded to Dr. Rabago and she was originally scheduled for surgery on 04/30/20. It was decided for her safety that she would be kept in the hospital until the day of surgery. However, the plans changed and she was scheduled to see Dr. Rabago on May 01, 2020 with possible surgery to follow on May 03, 2020. She was switched to oral morphine the day prior to discharge and she did well with this change and it did control her pain. She will be discharged home with a hospital bed and home health and oral morphine for pain control and her scheduled ortho follow ups. Procedures None. Discharge Physical Examination Allergies: Coded Allergies: chlorthalidone (Verified Allergy, Severe, 04/23/18) CHANGED ABILITY TO WALK Penicillins (Verified Allergy, Mild, RASH, 04/23/18) Sulfa (Sulfonamide Antibiotics) (Verified Allergy, Mild, RASH, 04/23/18) acetaminophen (Verified Allergy, Mild, NAUSEA, 04/23/18) "CRAZY" aspirin (Verified Allergy, Mild, RASH, 04/23/18) bacitracin (Verified Allergy, Mild, RASH, 04/23/18) cefaclor (Verified Allergy, Mild, RASH, 04/23/18) clindamycin (Verified Allergy, Mild, RASH, 04/23/18) codeine (Verified Allergy, Mild, 04/23/18) "CRAZY" ibuprofen (Verified Allergy, Mild, NAUSEA, 04/23/18) lanolin (Verified Allergy, Mild, RASH, 04/23/18) latex (Verified Allergy, Mild, RASH, 04/23/18) neomycin (Verified Allergy, Mild, RASH, 04/23/18) oxycodone (Verified Allergy, Mild, RASH, 04/23/18) polymyxin B (Verified Allergy, Mild, RASH, 04/23/18) tramadol (Verified Allergy, Mild, 04/23/18) "CRAZY" iodine (Verified Allergy, Unknown, 04/25/20) General Appearance: Alert, Oriented X3, Cooperative, No Acute Distress Respiratory: Clear to Auscultation Cardiovascular: Regular Rate Extremities: No Clubbing, No Cyanosis, No Edema Neuro: Other (left arm in sling) Psych/Mental Status: Mental Status NL, Mood NL Discharge Home Medications Reviewed and agree with Discharge Medication list on patient's Discharge Instruction sheet Instructions to Patient/Family Please see electronic discharge instructions given to patient. Clinical Quality Measures DVT/VTE Risk/Contraindication: Risk Factor Score Per Nursin RFS Level Per Nursing on Admit: 4+=Very High MILLI SWEET DO May 15, 2020 17:42
== END 2020-04-30 17:30 | disposition home health service (06) | DRG 948 ==
LOC: EDUNIT# 15:16 → ER 15:18 → INTOOBSV 19:00 → EDLOC 19:00 → 4TH 19:00 → UNDOADMOB 19:00 → 4TH 20:05 → OBSVTOIN 04-30 15:40 → UNDODISOB 04-30 17:30
PROVIDERS: ADMIT Family Medicine; ATTEND Family Medicine
DX: G89.11 Acute pain due to trauma (principal); S42.292A Other displaced fracture of upper end of left humerus, initial encounter for closed fracture; W10.9XXA Fall (on) (from) unspecified stairs and steps, initial encounter; I10 Essential (primary) hypertension; M06.9 Rheumatoid arthritis, unspecified; E03.9 Hypothyroidism, unspecified; A60.00 Herpesviral infection of urogenital system, unspecified; Z79.82 Long term (current) use of aspirin; Z88.0 Allergy status to penicillin; Z88.2 Allergy status to sulfonamides; Z88.8 Allergy status to other drugs, medicaments and biological substances; Z88.6 Allergy status to analgesic agent; Z88.1 Allergy status to other antibiotic agents; Z91.040 Latex allergy status
CPT/HCPCS: 36415; 73000; 73030; 73060; 80048; 80053; 81000; 85007; 85025; 85027; 86141; 96360; 96361; G0378

== ENCOUNTER → 2021-09-04 | Outpatient (CLI) | payer MEDICARE ==
[~2021-09-04] MED LIST changes: +AMLO1CAP5 PO; +BIEST PO; +CALC117719 PO; +CHOL200052 PO; +ETAN25VI SQ; +ETAN50PE SQ; -FOLI1TAB24 PO; +FOLI1TAB33 PO; +HYDR25TA4 PO; +KRIL1CAP18 PO; +MORP15TA PO; +MTP25TSR PO; +MULT-1136 PO; +POTA2TAB5 PO; +PROGESTERONE PO; +PROGESTERONE TROCHE PO; +TESTOSTERONE PO; +TURM500C4 PO; +VITA200C18 PO
== END ==
LOC: CARD 09:30
PROVIDERS: ATTEND Internal Medicine Cardiovascular Disease
DX: I11.9 Hypertensive heart disease without heart failure (principal); I25.10 Atherosclerotic heart disease of native coronary artery without angina pectoris
CPT/HCPCS: 93306

== ENCOUNTER → 2021-10-18 | Outpatient (CLI) | payer MEDICARE ==
--- NOTE | 2021-10-21 09:49 | Diagnostic Imaging Report ---
INDICATION: Routine screening. Comparison is made with prior mammogram from 05/23/2019 and 05/10/2018. 2-D and 3-D bilateral screening mammography was performed with CAD. CAD is utilized. The current study was also evaluated with a Computer Aided Detection (CAD) system. Both breasts are heterogeneously dense, limiting the sensitivity of mammography. The parenchymal pattern is stable. No mass or malignant-appearing microcalcifications are seen. There are scattered benign calcifications present. Axillae are unremarkable. IMPRESSION: BI-RADS Category 2 No mammographic features suspicious for malignancy are identified. ACR BI-RADS Category 2: Benign findings. Result letter will be mailed to the patient. Note: At least 10% of breast cancer is not imaged by mammography. Dictated by: Dictated on workstation # [id number]
== END ==
LOC: RAD 14:44
PROVIDERS: ATTEND Family Medicine
DX: Z12.31 Encounter for screening mammogram for malignant neoplasm of breast (principal)
CPT/HCPCS: 77063; 77067

== ENCOUNTER → 2022-01-13 | Outpatient (CLI) | payer MEDICARE ==
[~2022-01-13] VITALS: Ht 170 cm; Wt 125.0 kg
[~2022-01-13] MED LIST changes: +CATHETER FLUSH 10 ML SYR IVP PRN; -ETAN50PE SQ; +ETAN50PE3 SQ; +REGADENOSON 0.4 MG/5 ML SYR (LEXISCAN) IV ONE
[2022-01-13 09:15] VITALS: BP 169/91
--- NOTE | 2022-01-13 12:02 | Cardiology Stress Test Report ---
Stress Test Report Date of Procedure/Referring: Date of Procedure: Jan 13, 2022 PCP Sailaja Figueroa DO Admitting Physician Admitting Physician: Attending Physician: Radha Lagos MD Indications: HTN Baseline Heart Rate: 72 Baseline Blood Pressure: Blood Pressure Systolic: 169 Blood Pressure Diastolic: 91 Baseline Vitals Vital Signs Date Time Temp Pulse Resp B/P (MAP) Pulse Ox O2 Delivery O2 Flow Rate FiO2 01/13/22 09:15 102 169/91 (117) Baseline EKG: Baseline EKG: NSR Summary After explaining the procedure to the patient, she signed a consent and then brought to the stress nuclear laboratory. Patient received 0.4 mg Lexiscan for stress test, ECG, heart rate and blood pressure were monitored continuously. Resting and stress dose of radio tracer were injected, imaging was acquired and reviewed in short axis, horizontal long axis and vertical long axis views. TID: 1.14 SSS: 2 SDS: 2 EF: 50 1. Patient tolerated Lexiscan well 2. Breast attenuation with mild decrease uptake at the apex with mild reversibility. No significant ischemia or infarction noted on SPECT images 3. Normal left ventricular size, ejection fraction 50% Copy Copies To 1: SAILAJA FIGUEROA BASHAR J MD Jan 13, 2022 12:02
== END ==
LOC: CARD 08:15
PROVIDERS: ATTEND Internal Medicine Cardiovascular Disease
DX: I10 Essential (primary) hypertension (principal); I25.10 Atherosclerotic heart disease of native coronary artery without angina pectoris
CPT/HCPCS: 78452; 93017; A9502

== ENCOUNTER 2022-11-29 04:59 | Emergency (ER) | payer MEDICARE ==
[~2022-11-29] VITALS: Ht 170 cm; Wt 118.0 kg
[~2022-11-29 04:59] MED LIST changes: -CATHETER FLUSH 10 ML SYR IVP PRN; -REGADENOSON 0.4 MG/5 ML SYR (LEXISCAN) IV ONE
[2022-11-29] MEDS ORDERED: SCOPOLAMINE 1.5 MG (TRANSDERM-SCOP) PATCH TD ONE (05:00)
[2022-11-29] MEDS ORDERED: ONDANSETRON 4 MG/2 ML (SDV) Z0FRAN IVP ONE (05:00)
[2022-11-29] MEDS ORDERED: LACTATED RINGERS 1,000 ML IV ONE (05:00)
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
[2022-11-29 05:16] LABS: BASOPHILS # (AUTO) 0.1 10^3/uL (0.0-0.1); BASOPHILS % (AUTO) 1 % (0-10); EOSINOPHILS # (AUTO) 0.4 10^3/uL (0.0-0.3); EOSINOPHILS % (AUTO) 7 % (0-10); HEMATOCRIT 36 % (35-52); HEMOGLOBIN 12.3 g/dL (11.5-16.0); LYMPHOCYTES # (AUTO) 1.1 10^3/uL (1.0-4.0); LYMPHOCYTES % (AUTO) 20 % (12-44); MEAN CORPUSCULAR HEMOGLOBIN 35 pg (25-34); MEAN CORPUSCULAR HGB CONC 34 g/dL (32-36); MEAN CORPUSCULAR VOLUME 101 fL (80-99); MEAN PLATELET VOLUME 12.2 fL (9.0-12.2); MONOCYTES # (AUTO) 0.9 10^3/uL (0.0-1.0); MONOCYTES % (AUTO) 17 % (0-12); NEUTROPHILS # (AUTO) 2.9 10^3/uL (1.8-7.8); NEUTROPHILS % (AUTO) 55 % (42-75); PLATELET COUNT 184 10^3/uL (130-400); WHITE BLOOD COUNT 5.4 10^3/uL (4.3-11.0)
[2022-11-29 05:26] LABS: CHLORIDE 104 MMOL/L (98-107); POTASSIUM 3.2 MMOL/L (3.6-5.0); SODIUM 138 MMOL/L (135-145)
[2022-11-29 05:27] LABS: AMYLASE 53 U/L (25-125); CALCIUM 8.9 MG/DL (8.5-10.1)
[2022-11-29 05:28] LABS: GLUCOSE 121 MG/DL (70-105)
[2022-11-29 05:29] LABS: TOTAL PROTEIN 6.9 GM/DL (6.4-8.2)
[2022-11-29 05:30] LABS: BILIRUBIN,TOTAL 0.6 MG/DL (0.1-1.0); CARBON DIOXIDE 20 MMOL/L (21-32)
[2022-11-29 05:32] LABS: ALKALINE PHOSPHATASE 59 U/L (40-136); GFR ESTIMATED 55
[2022-11-29 05:33] LABS: BUN/CREATININE RATIO 23
[2022-11-29 05:35] LABS: ALANINE AMINOTRANSFERASE 14 U/L (0-55); MAGNESIUM 2.2 MG/DL (1.6-2.4)
[2022-11-29 05:36] LABS: LIPASE 23 U/L (8-78)
--- NOTE | 2022-11-29 06:15 | Diagnostic Imaging Report ---
PROCEDURE: CT head wo r/o stroke. TECHNIQUE: Multiple contiguous axial images were obtained through the brain without the use of intravenous contrast. Auto Exposure Controls were utilized during the CT exam to meet ALARA standards for radiation dose reduction. INDICATION: Neuro deficit. No prior studies are available for comparison. The ventricles and sulci are within normal limits. No sulcal effacement or midline shift is identified. No acute intra-axial or extra-axial hemorrhage is detected. Cisterns are patent. The visualized paranasal sinuses are clear apart from some mucosal thickening of multiple ethmoid air cells. IMPRESSION: No acute intracranial process is detected. Dictated by: Dictated on workstation # [id number]
[2022-11-29] MEDS ORDERED: KCL 10 MEQ TAB (MICRO K) PO ONE (07:45)
[2022-11-29 07:49] LABS: CLARITY,URINE CLEAR; COLOR,URINE YELLOW; PH,URINE 5.5 (5-9)
[2022-11-29 07:50] LABS: BILIRUBIN,URINE NEGATIVE (NEGATIVE); GLUCOSE, URINE (UA) NEGATIVE (NEGATIVE); KETONES,URINE NEGATIVE (NEGATIVE); NITRITE,URINE NEGATIVE (NEGATIVE); PROTEIN,URINE NEGATIVE (NEGATIVE)
[2022-11-29 07:51] LABS: BACTERIA,URINE NEGATIVE /HPF; LEUKOCYTE ESTERASE ,URINE 1+ (NEGATIVE); WBC,URINE RARE /HPF
[2022-11-29 08:36] LABS: FREE T4 (FREE THYROXINE) 1.15 NG/DL (0.70-1.48)
[2022-11-29] MEDS ORDERED: ONDANSETRON 4 MG/2 ML (SDV) Z0FRAN ONE (12:05)
[2022-11-29] MEDS ORDERED: ONDA4TAB11 SL (12:19)
[2022-11-29] MEDS ORDERED: MECL-149 PO (12:19)
[2022-11-29 12:34] VITALS: BP 146/70
== END 2022-11-29 12:34 | disposition home or self-care (01) ==
LOC: EDUNIT# 04:59 → ER 05:00
DX: I10 Essential (primary) hypertension (principal); E87.6 Hypokalemia; R11.2 Nausea with vomiting, unspecified; R00.8 Other abnormalities of heart beat; H55.00 Unspecified nystagmus; E66.9 Obesity, unspecified; Z68.41 Body mass index [BMI] 40.0-44.9, adult; Z91.040 Latex allergy status; Z20.822 Contact with and (suspected) exposure to COVID-19
CPT/HCPCS: 36415; 70450; 80053; 81000; 82150; 83690; 83735; 84439; 84443; 84484; 85025; 87636; 93005; 93041; 96361; 96374; 96376

== ENCOUNTER → 2023-01-14 | Outpatient (CLI) | payer MEDICARE ==
[~2023-01-14] MED LIST changes: +MECL-149 PO; +ONDA4TAB11 SL
--- NOTE | 2023-01-14 10:11 | Diagnostic Imaging Report ---
INDICATION: Routine screening. COMPARISON: 10/18/2021 and 05/23/2019. TECHNIQUE: 2D and 3D bilateral screening mammography was performed with CAD. FINDINGS: Both breasts are heterogeneously dense, limiting the sensitivity of mammography. The parenchymal pattern is stable. No mass or malignant-appearing microcalcifications are seen. There are occasional benign calcifications. The axillae are unremarkable. IMPRESSION: No mammographic features suspicious for malignancy are identified. ACR BI-RADS Category 2: Benign findings. Result letter will be mailed to the patient. Note: At least 10% of breast cancer is not imaged by mammography. Dictated by: Dictated on workstation # [id number]
== END ==
LOC: RAD 07:04
PROVIDERS: ATTEND Family Medicine
DX: Z12.31 Encounter for screening mammogram for malignant neoplasm of breast (principal)
CPT/HCPCS: 77063; 77067